=== PATIENT | male | born 2000 | race Caucasian/White ===

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

== ENCOUNTER 2019-03-19 21:33 | Emergency (ER) | payer OTHER ==
[~2019-03-19] VITALS: Ht 167.6 cm; Wt 79.6 kg
[2019-03-19 21:36] VITALS: Ht 167.6 cm; Wt 79.6 kg
[2019-03-20 01:31] VITALS: BP 145/90
== END 2019-03-20 01:31 | disposition home or self-care (01) ==
LOC: ED 21:33
DX: J40 Bronchitis, not specified as acute or chronic (principal)

== ENCOUNTER 2019-07-31 12:47 | Emergency (ER) | payer OTHER ==
[~2019-07-31] VITALS: Ht 170.2 cm; Wt 79.8 kg
[2019-07-31 13:44] VITALS: Ht 170.2 cm; Wt 79.8 kg
[2019-07-31 15:30] LABS: BASOPHIL % 0.3 % (0-2); PLATELET COUNT 272 x10^3mcL (130-400); RED CELL DISTRIBUTION WIDTH 13.1 % (11.5-14.5)
[2019-07-31 15:46] VITALS: BP 145/74
== END 2019-07-31 17:15 | disposition home or self-care (01) ==
LOC: ED 12:47
PROVIDERS: Emergency Medicine
DX: M10.9 Gout, unspecified (principal); J45.909 Unspecified asthma, uncomplicated; G43.909 Migraine, unspecified, not intractable, without status migrainosus
CPT/HCPCS: 36415

== ENCOUNTER 2019-09-06 12:26 | Emergency (ER) | payer OTHER ==
[~2019-09-06] VITALS: Ht 167.6 cm; Wt 78.0 kg
[2019-09-06 12:54] VITALS: Ht 167.6 cm; Wt 78.0 kg
[2019-09-06 15:11] VITALS: BP 174/99
== END 2019-09-06 15:11 | disposition home or self-care (01) ==
LOC: ED 12:26
DX: J45.901 Unspecified asthma with (acute) exacerbation (principal); G43.909 Migraine, unspecified, not intractable, without status migrainosus
CPT/HCPCS: J7512; J7613; J7644

== ENCOUNTER 2019-11-14 12:54 | Emergency (ER) | payer OTHER ==
[~2019-11-14] VITALS: Ht 170.2 cm; Wt 77.6 kg
[2019-11-14 12:57] VITALS: Ht 170.2 cm; Wt 77.6 kg
[2019-11-14 13:51] LABS: BASOPHIL % 0.3 % (0-2); PLATELET COUNT 288 x10^3mcL (130-400); RED CELL DISTRIBUTION WIDTH 13.4 % (11.5-14.5)
[2019-11-14 13:57] LABS: CALCIUM 9.3 mg/dL (8.5-10.1); CARBON DIOXIDE 26.2 mmol/L (21-32); CHLORIDE SERUM 103 mmol/L (98-107); CREATININE SERUM 1.3 mg/dL (0.7-1.3); GFR1 > 60 mL/min; GLUCOSE SERUM 98 mg/dL (74-106); POTASSIUM SERUM 3.9 mmol/L (3.5-5.1); SODIUM SERUM 139 mmol/L (136-145)
[2019-11-14 14:02] LABS: ALKALINE PHOSPHATASE 82 U/L (46-116); ALT/SGPT 35 U/L (16-63); AST/SGOT 14 U/L (15-37); BILIRUBIN TOTAL 0.6 mg/dL (0.20-1.00); TOTAL PROTEIN, SERUM 7.7 g/dL (6.4-8.2)
[2019-11-14 15:18] VITALS: BP 143/86
== END 2019-11-14 15:18 | disposition home or self-care (01) ==
LOC: ED 12:54
PROVIDERS: Emergency Medicine
DX: B34.9 Viral infection, unspecified (principal); M10.9 Gout, unspecified; R53.1 Weakness; J45.909 Unspecified asthma, uncomplicated; G43.909 Migraine, unspecified, not intractable, without status migrainosus; Z20.828 Contact with and (suspected) exposure to other viral communicable diseases
CPT/HCPCS: 36415; 87804; J1885; J7512

== ENCOUNTER 2019-12-18 08:58 | Emergency (ER) | payer OTHER ==
[~2019-12-18] VITALS: Ht 170.2 cm; Wt 77.1 kg
[2019-12-18 09:09] VITALS: BP 137/87; Ht 170.2 cm; Wt 77.1 kg
== END 2019-12-18 10:15 | disposition home or self-care (01) ==
LOC: ED 08:58
DX: J45.901 Unspecified asthma with (acute) exacerbation (principal); G43.909 Migraine, unspecified, not intractable, without status migrainosus; Z20.828 Contact with and (suspected) exposure to other viral communicable diseases

== ENCOUNTER 2020-05-05 21:43 | Emergency (ER) | payer OTHER ==
[~2020-05-05] VITALS: Ht 162.6 cm; Wt 81.6 kg
[2020-05-05 22:06] VITALS: Ht 162.6 cm; Wt 81.6 kg
[2020-05-05 23:52] VITALS: BP 136/87
== END 2020-05-05 23:52 | disposition home or self-care (01) ==
LOC: ED 21:43
DX: S39.012A Strain of muscle, fascia and tendon of lower back, initial encounter (principal); J45.909 Unspecified asthma, uncomplicated; W17.89XA Other fall from one level to another, initial encounter; Y93.89 Activity, other specified; Y92.89 Other specified places as the place of occurrence of the external cause; Y99.8 Other external cause status
CPT/HCPCS: J1885

== ENCOUNTER 2020-07-13 01:34 | Emergency (ER) | payer OTHER, SELFPAY ==
[~2020-07-13] VITALS: Ht 167.6 cm; Wt 81.6 kg
[2020-07-13 01:36] VITALS: Ht 167.6 cm; Wt 81.6 kg
[2020-07-13 03:00] VITALS: BP 144/95
== END 2020-07-13 03:01 | disposition home or self-care (01) ==
LOC: ED 01:34
DX: F41.0 Panic disorder [episodic paroxysmal anxiety] (principal); J45.909 Unspecified asthma, uncomplicated; G43.909 Migraine, unspecified, not intractable, without status migrainosus